=== PATIENT | female | born 1930 | race Caucasian/White ===

== ENCOUNTER 2017-10-29 13:10 | Emergency (ER) | payer MEDICARE ==
[~2017-10-29] VITALS: Ht 152.4 cm; Wt 57.0 kg
[~2017-10-29 13:10] MED LIST: LEVO.1
[2017-10-29 13:22] VITALS: BP 159/72; PULSE 61; RESP 18; TEMP 97.8; O2SAT 99
[2017-10-29 14:02] VITALS: BP 167/76; PULSE 58; RESP 17; TEMP 97.6; O2SAT 97
--- NOTE | 2017-10-29 14:02 | PD ---
HPI . Fall Chief Complaint: Dizziness Time Seen by Provider: 13:50 Travel History International Travel<30 days: No Contact w/Intl Traveler<30days: No Traveled to known affect area: No History of Present Illness HPI This patient presents for the evaluation of injury sustained in a fall. She states that she fell getting out of her 's full-sized SUV 1 week ago landing on her left hip she comes in complaining with left hip pain which has been getting progressively worse since the time of the injury. She now rates her pain as 7/10. The pain is exacerbated by standing and walking. She states that she now feels lightheaded. That started today. She does not describe vertigo. She has not noticed any modifying factors with the lightheadedness. She denies any associated chest pain, shortness of breath, nausea or diaphoresis. 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) Social History Alcohol Use: No Tobacco Use: No Substance Use: No Allergies-Medications (Allergen,Severity, Reaction): Coded Allergies: No Known Allergies (Verified Allergy, Mild, 10/29/17) Reported Meds & Prescriptions Reported Meds & Active Scripts Active Reported Levothyroxine (Levothyroxine Sodium) 125 Mcg Tab 125 Mcg PO DAILY Review of Systems Except as stated in HPI: all other systems reviewed are Neg General / Constitutional: No: Fever, Chills Eyes: No: Blurred Vision HENT: Positive: Lightheadedness, No: Headaches Cardiovascular: No: Chest Pain or Discomfort, Palpitations Respiratory: No: Shortness of Breath Gastrointestinal: No: Nausea, Vomiting, Diarrhea, Abdominal Pain Musculoskeletal: Positive: Arthralgias Physical Exam Narrative GENERAL: Awake and alert and in no acute distress. SKIN: warm/dry. HEAD: Normocephalic. Atraumatic. EYES: Pupils equal and round. No scleral icterus. No injection or drainage. ENT: No nasal bleeding or discharge. Mucous membranes pink and moist. NECK: Trachea midline. Full range of motion without pain.. CARDIOVASCULAR: Regular rate and rhythm. Heart sounds normal. RESPIRATORY: No accessory muscle use. Clear to auscultation. Breath sounds equal bilaterally. GASTROINTESTINAL: Abdomen soft. Nontender. Bowel sounds present. Nondistended. MUSCULOSKELETAL: There is some mild left hip tenderness. No pain with logrolling. Full passive range of motion. Distally neurovascularly intact. No shortening or malrotation. NEUROLOGICAL: Awake and alert. No obvious cranial nerve deficits. Motor grossly within normal limits. Normal speech. PSYCHIATRIC: Appropriate mood and affect; insight and judgment normal. Data Data Last Documented VS Vital Signs Date Time Temp Pulse Resp B/P (MAP) Pulse Ox O2 Delivery O2 Flow Rate FiO2 10/29/17 14:02 97.6 58 17 167/76 (106) 97 Room Air Orders Orders Electrocardiogram (10/29/17 13:27) Complete Blood Count With Diff (10/29/17 13:27) Comprehensive Metabolic Panel (10/29/17 13:27) Iv Access Insert/Monitor (10/29/17 13:27) Hip, Uni(Ap&Lat) W Ap Pelvis (10/29/17 ) Labs Laboratory Tests Test 10/29/17 14:08 White Blood Count 7.7 TH/MM3 Red Blood Count 5.50 MIL/MM3 Hemoglobin 10.7 GM/DL Hematocrit 34.4 % Mean Corpuscular Volume 62.7 FL Mean Corpuscular Hemoglobin 19.6 PG Mean Corpuscular Hemoglobin Concent 31.2 % Red Cell Distribution Width 15.4 % Platelet Count 252 TH/MM3 Mean Platelet Volume 11.7 FL Neutrophils (%) (Auto) 50.6 % Lymphocytes (%) (Auto) 35.1 % Monocytes (%) (Auto) 11.5 % Eosinophils (%) (Auto) 2.2 % Basophils (%) (Auto) 0.6 % Neutrophils # (Auto) 3.9 TH/MM3 Lymphocytes # (Auto) 2.7 TH/MM3 Monocytes # (Auto) 0.9 TH/MM3 Eosinophils # (Auto) 0.2 TH/MM3 Basophils # (Auto) 0.0 TH/MM3 CBC Comment DIFF FINAL Differential Comment Blood Urea Nitrogen 20 MG/DL Creatinine 0.97 MG/DL Random Glucose 81 MG/DL Total Protein 7.6 GM/DL Albumin 3.7 GM/DL Calcium Level 9.2 MG/DL Alkaline Phosphatase 91 U/L Aspartate Amino Transf (AST/SGOT) 17 U/L Alanine Aminotransferase (ALT/SGPT) 19 U/L Total Bilirubin 0.4 MG/DL Sodium Level 143 MEQ/L Potassium Level 3.9 MEQ/L Chloride Level 109 MEQ/L Carbon Dioxide Level 28.2 MEQ/L Anion Gap 6 MEQ/L Estimat Glomerular Filtration Rate 55 ML/MIN MDM Medical Decision Making Medical Screen Exam Complete: Yes Emergency Medical Condition: Yes Interpretation(s) EKG shows a normal sinus rhythm with no acute ischemic change Differential Diagnosis Differential diagnosis of extremity trauma includes but is not limited to fracture, sprain or strain, dislocation, contusion Differential diagnosis of dizziness includes but is not limited to vertigo, dehydration, acute blood loss, sepsis, ACS Narrative Course This patient presents with the chief complaint of a left hip injury which occurred a week ago and with the secondary complaint of lightheadedness which started today. X-ray of her hip is pending. Cardiac workup is pending. Last Impressions Hip and Pelvis X-Ray 10/29/17 0000 Signed Impressions: Service Date/Time: October 15:10 - CONCLUSION: 1. No acute fracture or dislocation. 2. 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 Olvin De La Vega MD The hip x-ray was independently reviewed by me. CBC & BMP Diagram 10/29/17 14:08 Total Protein 7.6, Albumin 3.7, Calcium Level 9.2, Alkaline Phosphatase 91, Aspartate Amino Transf (AST/SGOT) 17, Alanine Aminotransferase (ALT/SGPT) 19, Total Bilirubin 0.4 The history, exam, diagnostic testing, and current condition do not suggest any significant pathology to warrant further testing, continued ED treatment, admission, or surgical evaluation at this point. No EMC was found. The patient 's condition is stable and appropriate for discharge. Diagnosis Primary Impression: Dizziness Additional Impression: Contusion of left hip Qualified Codes: S70.02XA - Contusion of left hip, initial encounter Patient Instructions: Contusion in Adults (DC), General Instructions Additional Instructions: Tylenol and ice for hip pain. Disposition: 01 DISCHARGE HOME Condition: Stable Maye Hazel MD Oct 29, 2017 14:02
[2017-10-29] MEDS ORDERED: LEVO125T4 PO (14:04)
[2017-10-29 14:54] LABS: ALBUMIN 3.7 GM/DL (3.4-5.0); AST (GOT) 17 U/L (15-37); BICARBONATE 28.2 MEQ/L (21.0-32.0); BLOOD UREA NITROGEN 20 MG/DL (7-18); CALCIUM 9.2 MG/DL (8.5-10.1); CHLORIDE 109 MEQ/L (98-107); CREATININE 0.97 MG/DL (0.50-1.00); GLOMERULAR FILTRATION RATE 55 ML/MIN (>89); GLUCOSE,RANDOM 81 MG/DL (74-106); SODIUM (NA) 143 MEQ/L (136-145)
[2017-10-29 14:56] LABS: ALKALINE PHOSPHATASE 91 U/L (45-117); ALT (GPT) 19 U/L (10-53); TOTAL BILIRUBIN ADULT 0.4 MG/DL (0.2-1.0); TOTAL PROTEIN 7.6 GM/DL (6.4-8.2)
[2017-10-29 15:18] LABS: AUTOMATED NEUTROPHIL # 3.9 TH/MM3 (1.8-7.7); BASOPHIL % 0.6 % (0.0-2.0); EOSINOPHIL # 0.2 TH/MM3 (0-0.4); EOSINOPHIL % 2.2 % (0.0-4.0); HEMATOCRIT 34.4 % (35.0-46.0); HEMOGLOBIN 10.7 GM/DL (11.6-15.3); LYMPH % 35.1 % (9.0-44.0); LYMPHOCYTE # 2.7 TH/MM3 (1.0-4.8); MEAN CELL VOLUME 62.7 FL (80.0-100.0); MEAN CORPUSCULAR HEMOGLOBIN 19.6 PG (27.0-34.0); MEAN CORPUSCULAR HGB CONC 31.2 % (32.0-36.0); MEAN PLATELET VOLUME 11.7 FL (7.0-11.0); MONO % 11.5 % (0.0-8.0); MONOCYTE # 0.9 TH/MM3 (0-0.9); NEUT % 50.6 % (16.0-70.0); PLATELET COUNT 252 TH/MM3 (150-450); RED CELL DISTRIBUTION WIDTH 15.4 % (11.6-17.2); WHITE BLOOD COUNT 7.7 TH/MM3 (4.0-11.0)
--- NOTE | 2017-10-29 15:23 | RADRPT ---
EXAM DATE/TIME: 10/29/2017 15:10 [facility] COMPARISON: No previous studies available for comparison. INDICATIONS : Left hip pain, fell MEDICAL HISTORY : Arthritis. SURGICAL HISTORY : None. ENCOUNTER: Initial ACUITY: 1 week PAIN SCORE: 10/10 LOCATION: Left Hip FINDINGS: Examination of the left hip was performed with AP Pelvis. 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 No acute fracture or focal bony destruction. Pubic symphysis and SI j oints are maintained. Sacral arches are grossly intact. Multiple soft tissue calcifications in the pe lvis likely reflect phleboliths. Soft tissues are otherwise unremarkable. CONCLUSION: 1. No acute fracture or dislocation. 2. 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 Olvin De La Vega MD on October 29, 2017 at 15:19 Board Certified Radiologist. This report was verified electronically.
[2017-10-29 16:10] VITALS: BP 135/64
--- NOTE | 2017-10-31 09:21 | EKG ---
Date Performed: 10/29/2017 Time Performed: 14:09:16 PTAGE: 87 years EKG: SINUS BRADYCARDIA BORDERLINE LEFT AXIS DEVIATION BORDERLINE ECG PREVIOUS TRACING : 01/27/2007 00.40 DOCTOR: Floresita Martin Interpretating Date/Time 10/31/2017 09:16:33
== END 2017-10-29 16:15 | disposition home or self-care (01) ==
LOC: NEPC 13:10
DX: S70.02XA Contusion of left hip, initial encounter (principal); R42 Dizziness and giddiness; Z86.73 Personal history of transient ischemic attack (TIA), and cerebral infarction without residual deficits; F32.9 Major depressive disorder, single episode, unspecified; F41.9 Anxiety disorder, unspecified; R94.31 Abnormal electrocardiogram [ECG] [EKG]; W19.XXXA Unspecified fall, initial encounter
CPT/HCPCS: 73502; 80053; 85025; 93005; 99285

== ENCOUNTER 2017-10-31 12:19 | Emergency (ER) | payer MEDICARE ==
[~2017-10-31] VITALS: Ht 152.4 cm; Wt 57.0 kg
[~2017-10-31 12:19] MED LIST changes: -LEVO.1; +LEVO125T4 PO
[2017-10-31 12:24] VITALS: BP 156/73; PULSE 58; RESP 17; TEMP 97.2; O2SAT 100
--- NOTE | 2017-10-31 13:46 | PD ---
HPI Chief Complaint: Pain: Acute or Chronic Time Seen by Provider: 12:44 Travel History International Travel<30 days: No Contact w/Intl Traveler<30days: No Traveled to known affect area: No History of Present Illness HPI Patient is an 87 year old female who comes in complaining of left groin pain. She was here 2 days ago for the same thing after a fall. She says she fell getting out of her 's SUV. She says she went to grab onto something and missed and fell flat on her left side. She denies hitting her head or any LOC. She came here and had an XR of her pelvis done that showed no acute injury. She continues to have pain, especially with movement or walking and she says it has gotten worse. She tried taking Tylenol for her pain without relief. Severity is mild to moderate. PFSH Past Medical History Anxiety: Yes Depression: Yes Heart Rhythm Problems: No Cancer: Yes (LEFT JAW/LEFT TONGUE) Cardiac Catheterization: No Cardiovascular Problems: No High Cholesterol: No Congestive Heart Failure: No Cerebrovascular Accident: Yes (TIA) Diabetes: No Diminished Hearing: No Endocrine: Yes (HYPOTHYROIDISM) Hypertension: No Immunizations Current: No (UNKNOWN) Myocardial Infarction: No Tetanus Vaccination: Unknown Influenza Vaccination: Yes ?: Not Past Surgical History Coronary Artery Bypass Graft: No Oral Surgery: Yes (LEFT JAW/LEFT TONGUE CANCER) Social History Alcohol Use: No Tobacco Use: No Substance Use: No Allergies-Medications (Allergen,Severity, Reaction): Coded Allergies: No Known Allergies (Verified Allergy, Mild, 10/31/17) Reported Meds & Prescriptions Reported Meds & Active Scripts Active Reported Levothyroxine (Levothyroxine Sodium) 125 Mcg Tab 125 Mcg PO DAILY Review of Systems General / Constitutional: No: Fever, Chills HENT: No: Headaches, Lightheadedness Cardiovascular: No: Chest Pain or Discomfort Respiratory: No: Shortness of Breath Gastrointestinal: No: Nausea, Vomiting Musculoskeletal: Positive: Pain Skin: No Rash, No Change in Pigmentation Neurologic: No: Weakness, Dizziness, Sensory Disturbance Physical Exam Narrative GENERAL: Awake and alert, in no acute distress. SKIN: Focused skin assessment warm/dry. No wounds or signs of infection. HEAD: Atraumatic. Normocephalic. EYES: Pupils equal and round. No scleral icterus. EOMI. ENT: No nasal bleeding or discharge. Mucous membranes pink and moist. CARDIOVASCULAR: Regular rate and rhythm. No murmur appreciated. RESPIRATORY: No accessory muscle use. Clear to auscultation. Breath sounds equal bilaterally. MUSCULOSKELETAL: No obvious deformities. No clubbing. No cyanosis. No edema. Tender to palpation of left hip and femur. No tenderness to the spine. pain with movement of her left hip. NEUROLOGICAL: Awake and alert. No obvious cranial nerve deficits. Motor grossly within normal limits. Normal speech. PSYCHIATRIC: Appropriate mood and affect; insight and judgment normal. Data Data Last Documented VS Vital Signs Date Time Temp Pulse Resp B/P (MAP) Pulse Ox O2 Delivery O2 Flow Rate FiO2 10/31/17 12:24 97.2 58 17 156/73 (100) [address] Pelvis W/O Iv Contrast (10/31/17 ) Ct Lumb Spine W/O Contrast (10/31/17 ) Femur (Ap & Lat/2vws) (10/31/17 ) MDM Medical Decision Making Medical Screen Exam Complete: Yes Emergency Medical Condition: Yes Medical Record Reviewed: Yes Differential Diagnosis hip fracture vs pelvic fracture vs compression fracture vs sprain Narrative Course Patient is an 87-year-old female who comes in complaining of pelvic pain after fall. Exam shows pain with movement of her left hip. CT of the pelvis performed shows a small buckle fracture of the inferior pubic ramus. CT of the lumbar spine shows no acute abnormalities. X-ray of the femur shows no acute abnormalities. Patient did not want any pain medication here. Last [address] 10/31/17 0000 Signed Impressions: Service Date/Time: Tuesday, October 31, 2017 13:51 - CONCLUSION: 1. Soft tissue contusion in the subcutaneous tissues overlying the greater trochanter of the left hip. 2. Nondisplaced subtle buckle type fracture through the inferior pubic ramus on the left. No fracture of the hip itself, however. Severe degenerative osteoarthritic changes of the hip joint. 3. 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 Chris Tovar MD Lumbar Spine CT 10/31/17 0000 Signed Impressions: Service Date/Time: Tuesday, October 31, 2017 13:51 - CONCLUSION: 1. Multilevel degenerative disc disease with loss of disc height and vacuum disc phenomenon from L2-3 inferiorly. Minimal grade 1 listhesis of L4 on 5. 2. No acute fracture. 3. Despite degenerative changes and multilevel diffuse disc bulges, the spinal canal and neural foramina appear to be adequate throughout. Chris Tovar MD Femur X-Ray 10/31/17 0000 Signed Impressions: Service Date/Time: Tuesday, October 31, 2017 13:45 - CONCLUSION: 1. Degenerative osteophytic changes in the left hip and left knee. 2. Possible small free body adjacent to the femoral neck superiorly. 3. No fracture identified Chris Tovar MD I spoke with Dr. Caraballo of orthopedics, he advises pain control and follow-up with her primary care physician. Patient is a snowbird and does not know when she will be returning home. Given information to follow-up with Dr. Caraballo as needed. Given a prescription for tramadol to take as needed, advised that it may make her drowsy and to be careful in taking it. Advised return anytime for any worsening symptoms. Diagnosis Primary Impression: Fracture, pelvis closed Qualified Codes: S32.9XXD - Fracture of unspecified parts of lumbosacral spine and pelvis, subsequent encounter for fracture with routine healing Referrals: Dale Singh Jr., MD call for appointment Patient Instructions: General Instructions, Pelvic Fracture (ED) Additional Instructions: Follow-up with your primary care doctor or and orthopedic surgeon as needed. You can take tramadol for severe pain, but be careful as it may make you drowsy. Return to the ED as needed for any worsening symptoms. Scripts Tramadol (Tramadol) 50 Mg Tab 50 MG PO Q6H Y for PAIN, #10 TAB 0 Refills Prov: Chica Germain MD 10/31/17 Disposition: 01 DISCHARGE HOME Condition: Stable Chica Germain MD Oct 31, 2017 13:46
--- NOTE | 2017-10-31 14:21 | RADRPT ---
EXAM DATE/TIME: 10/31/2017 13:45 [facility] COMPARISON: No previous studies available for comparison. INDICATIONS : Fall days ago. Left hip pain. MEDICAL HISTORY : None. SURGICAL HISTORY : None. ENCOUNTER: Subsequent ACUITY: 3 days PAIN SCORE: 8/10 LOCATION: Left lateral FINDINGS: Two view examination of the left femur demonstrates no evidence of fracture or dislocation. Bony min eralization is normal. The soft tissue structures are intact. Degenerative osteoarthritic changes ar e seen in the left hip and left knee. Possible small free body projecting just cephalad to the femora l neck. CONCLUSION: 1. Degenerative osteophytic changes in the left hip and left knee. 2. Possible small free body adjacent to the femoral neck superiorly. 3. No fracture identified Chris Tovar MD on October 31, 2017 at 14:17 Board Certified Radiologist. This report was verified electronically.
--- NOTE | 2017-10-31 14:39 | RADRPT ---
EXAM DATE/TIME: 10/31/2017 13:51 [facility] COMPARISON: FEMUR LEFT (AP & LAT/2VWS), October 31, 2017, 13:45. INDICATIONS : Left sided groin pain. ORAL CONTRAST: No oral contrast ingested. RADIATION DOSE: 13.30 CTDIvol (mGy) MEDICAL HISTORY : Stroke. Hypothyroidism. tongue cancer SURGICAL HISTORY : None. ENCOUNTER: Initial ACUITY: 1 day PAIN SCALE: 7/10 LOCATION: Left groin TECHNIQUE: Volumetric scanning of the pelvis was performed. Using automated exposure control and adjustment of the mA and/or kV according to patient size, radiation dose was kept as low as reasonably achievable t o obtain optimal diagnostic quality images. DICOM format image data is available electronically for review and comparison. FINDINGS: BOWEL/MESENTERY: Severe diverticular disease of the descending and sigmoid colon without diverticulitis. BLADDER: There is no wall thickening or mass. RETROPERITONEUM: There is no aneurysm or lymphadenopathy. REPRODUCTIVE: Within normal limits. INGUINAL: There is no lymphadenopathy or hernia. MUSCULOSKELETAL: Osteoarthritic changes in both hips, left worse than right. There is a nondisplaced, subtle buckle ty pe fracture through the inferior pubic ramus. Soft tissue contusion in the subcutaneous tissues overl kenrick the greater trochanter of the left. No free body identified in the left hip. Density actually re presents a prominent superior spur off the femoral head. CONCLUSION: 1. Soft tissue contusion in the subcutaneous tissues overlying the greater trochanter of the left hip . 2. Nondisplaced subtle buckle type fracture through the inferior pubic ramus on the left. No fracture of the hip itself, however. Severe degenerative osteoarthritic changes of the hip joint. 3. 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 Chris Tvoar MD on October 31, 2017 at 14:32 Board Certified Radiologist. This report was verified electronically.
--- NOTE | 2017-10-31 14:50 | RADRPT ---
EXAM DATE/TIME: 10/31/2017 13:51 [facility] COMPARISON: No previous studies available for comparison. INDICATIONS : Left sided groin pain. RADIATION DOSE: 25.69 CTDIvol (mGy) MEDICAL HISTORY : Stroke. Hypothyroidism. tongue cancer SURGICAL HISTORY : None. ENCOUNTER: Initial ACUITY: 1 day PAIN SCALE: 7/10 LOCATION: Left groin TECHNIQUE: Volumetric scanning of the lumbar spine was performed. Multiplanar reconstructions in the sagittal, coronal and oblique axial planes were performed. Using automated exposure control and adjustment of the mA and/or kV according to patient size, radiation dose was kept as low as reasonably achievable t o obtain optimal diagnostic quality images. DICOM format image data is available electronically for review and comparison. FINDINGS: Sagittal and coronal reconstructions show multilevel degenerative disc disease with loss of disc heig ht and vacuum disc phenomenon from L2-3 inferiorly. Minimal grade 1 anterolisthesis L4 on 5 probably due to facet degeneration. Vertebral body heights are maintained without fracture. Mild, diffuse disc bulges at multiple lumbar levels encroach on the anterior epidural space but the spinal canal appear s to be adequate throughout. Patient is status post cholecystectomy. T12-L1: The thecal sac has a normal diameter. No evidence of disc bulge or protrusion. The neural foramina are patent bilaterally. L1-L2: The thecal sac has a normal diameter. No evidence of disc bulge or protrusion. The neural foramina are patent bilaterally. L2-L3: The thecal sac has a normal diameter. No evidence of disc bulge or protrusion. The neural foramina are patent bilaterally. L3-L4: Diffuse disc bulge. Spinal canal and neural foramina are adequate L4-L5: Diffuse disc bulge. Spinal canal and neural foramina are adequate L5-S1: Diffuse disc bulge. Spinal canal and neural foramina are adequate CONCLUSION: 1. Multilevel degenerative disc disease with loss of disc height and vacuum disc phenomenon from L2-3 inferiorly. Minimal grade 1 listhesis of L4 on 5. 2. No acute fracture. 3. Despite degenerative changes and multilevel diffuse disc bulges, the spinal canal and neural ekta jamila appear to be adequate throughout. Chris Tovar MD on October 31, 2017 at 14:44 Board Certified Radiologist. This report was verified electronically.
[2017-10-31] MEDS ORDERED: TRAM50TA PO (15:01)
== END 2017-10-31 15:05 | disposition home or self-care (01) ==
LOC: NEPD 12:19
DX: S32.9XXA Fracture of unspecified parts of lumbosacral spine and pelvis, initial encounter for closed fracture (principal); W17.89XA Other fall from one level to another, initial encounter; E03.9 Hypothyroidism, unspecified; F32.9 Major depressive disorder, single episode, unspecified; Z85.810 Personal history of malignant neoplasm of tongue; Z86.73 Personal history of transient ischemic attack (TIA), and cerebral infarction without residual deficits; Z79.899 Other long term (current) drug therapy
CPT/HCPCS: 72131; 72192; 73552; 99284